=== PATIENT | male | born 1960 | race Caucasian/White ===

== ENCOUNTER 2016-06-23 09:16 | Emergency (ER) | payer BC | END 2016-06-23 13:07 | disposition home or self-care (01) | LOC: ER 09:16 | DX: R41.0 Disorientation, unspecified (principal); Z79.899 Other long term (current) drug therapy; Z87.891 Personal history of nicotine dependence; E78.00 Pure hypercholesterolemia, unspecified; I10 Essential (primary) hypertension | CPT/HCPCS: 36415; 70450; 71010; 80053; 81003; 82140; 82947; 84439; 84443; 85025; 85610; 85730; 93005 ==